=== PATIENT | male | born 1970 | race Two or more races ===

== ENCOUNTER → 2020-03-10 | Day surgery (SDC) | payer OTHER ==
[2020-03-10] VITALS (10 sets, daily range): BP systolic 115–138; BP diastolic 60–89
[~2020-03-10] VITALS: Ht 172.7 cm; Wt 66.2 kg
[~2020-03-10] MED LIST: Atropine Sulfate 0.4mg/ml inj IVP PRN; DiphenhydrAMINE 50mg/ml Inj IVP PRN; HYDROcodone/Acetamin 5/325 tab ORAL PRN; HYDROcodone/Acetamin 7.5/325 tab ORAL PRN; Hydromorphone 0.5mg/0.5ml inj IVP PRN; Ketorolac 30mg Inj IV PRN; LORazepam Inj 2mg/ml 1ml IV PRN; LR 1000ml 1,000 ML IVLG SCH; LR 1000ml ONE; Labetalol 5mg/ml 20ml vial IV PRN; Lidocaine 1% MPF 10mg/ml 5ml ONE; Meperidine 25mg/1ml Inj (FOR RIGORS ONLY) IV PRN; Metoclopramide 10mg/2ml Inj IVP PRN; Midazolam 2mg/2ml Inj IVP PRN; fentaNYL 100 mcg/2 mL IV PRN; oxyCODONE HCL/Acetaminophen 5/325mg ORAL PRN
--- NOTE | 2020-03-10 09:31 | Pre-Procedure Note/Attestation ---
Pre-Procedure Note/Attestation Complete Prior to Procedure Planned Procedure: not applicable Procedure Narrative: endoscopy and colonoscopy Attestation I attest that I discussed the nature of the procedure; its benefits; risks and complications; and alternatives (and the risks and benefits of such alternatives), prior to the procedure, with the patient (or the patient's legal guest relations representative). I attest that, if there was a reasonable possibility of needing a blood transfusion, the patient (or the patient's legal guest relations representative) was given the [facility] standardized written summary, pursuant to the Ciro Galt Blood Safety Act ([place] Health and Safety Code # 1645, as amended). I attest that I re-evaluated the patient just prior to the surgery and that there has been no change in the patient's H&P, except as documented below: Otis Barahona MD Mar 10, 2020 09:31
--- NOTE | 2020-03-10 09:44 | Anethesia Preoperative Eval ---
Anesthesia Pre-op PMH/ROS General Date of Evaluation: Mar 10, 2020 Time of Evaluation: 09:24 Anesthesiologist: Shi ASA Score: ASA 1 Mallampati Score Class I : Soft palate, uvula, fauces, pillars visible Class II: Soft palate, uvula, fauces visible Class III: Soft palate, base of uvula visible Class IV: Only hard plate visible Mallampati Classification: Class I Surgeon: [place] Diagnosis: Abd Pain Surgical Procedure: EGD/Colonoscopy Anesthesia History: none Family History: no anesthesia problems Allergies: Coded Allergies: No Known Allergies (Unverified , 03/10/20) Medications: see eMAR Patient NPO?: Yes Past Medical History Gastrointestinal/Genitourinary: Reports: GERD Anesthesia Pre-op Phys. Exam Physician Exam Last Vital Signs Date Time Temp Pulse Resp B/P (MAP) Pulse Ox O2 Delivery O2 Flow Rate FiO2 03/10/20 08:07 98.0 57 18 119/74 98 Room Air Constitutional: NAD Neurologic: CN 2-12 intact Cardiovascular: RRR Respiratory: CTA Gastrointestinal: S/NT/ND Airway Exam Mallampati Score: Class I MO: full ROM: full Teeth: intact Anesthesia Pre-op A/P Risk Assessment & Plan Assessment: ASA 1 Plan: TIVA Status Change Before Surgery: No Dat Osullivan MD Mar 10, 2020 09:44
--- NOTE | 2020-03-10 09:45 | Immediate Post-Op Evaluation ---
Immediate Post-Op Evalulation Immediate Post-Op Evalulation Procedure: EGD/Colonoscopy Date of Evaluation: Mar 10, 2020 Time of Evaluation: 10:25 IV Fluids: 700 LR Blood Products: 0 Estimated Blood Loss: 1 Urinary Output: 0 Blood Pressure Systolic: 126 Blood Pressure Diastolic: 89 Pulse Rate: 66 Respiratory Rate: 16 O2 Sat by Pulse Oximetry: 100 Temperature (Fahrenheit): 97.6 Pain Score (1-10): 1 Nausea: No Vomiting: No Complications 0 Patient Status: awake, reacts, patent, none Hydration Status: adequate Dat Osullivan MD Mar 10, 2020 09:45
--- NOTE | 2020-03-10 09:46 | 48 Hour Post Anesthesia Eval ---
Post Anesthesia Evaluation Procedure: EGD/Colonoscopy Date of Evaluation: Mar 10, 2020 Time of Evaluation: 12:46 Blood Pressure Systolic: 121 0: 76 Pulse Rate: 73 Respiratory Rate: 18 Temperature (Fahrenheit): 98 O2 Sat by Pulse Oximetry: 100 Airway: patent Nausea: No Vomiting: No Pain Intensity: 1 Hydration Status: adequate Cardiopulmonary Status: Stable Mental Status/LOC: patient returned to baseline Follow-up Care/Observations: 0 Post-Anesthesia Complications: 0 Follow-up care needed: ready to discharge Dat Osullivan MD Mar 10, 2020 09:46
--- NOTE | 2020-03-10 10:23 | Endoscopy Procedure Note ---
Endoscopy Procedure Note General Indication for Procedure: abd pain diarrhea Procedures Performed: EGD, colonoscopy Operative Findings/Diagnosis: nl nl Specimen: yes Pt Tolerated Procedure Well: Yes Estimated Blood Loss: none Anesthesia Anesthesiologist: Rodo Anesthesia: MAC, moderate sedation Medications Medication Given: see anesthesia record Inserted Devices Implant(s) used?: No GI Core Measures 50 yrs or older w/o bx or poly: Not Applicable 10yrs. F/U recommended: Not Applicable Otis Barahona MD Mar 10, 2020 10:23
--- NOTE | 2020-03-10 10:23 | Brief Operative Note ---
Immediate Post Operative Note Operative Note Chief Complaint: abd pain diarrhea Specimen: yes Complications: none Fluids: per anesthesia Implant(s) used?: No Otis Barahona MD Mar 10, 2020 10:23
--- NOTE | 2020-03-10 10:25 | Endoscopy Procedure Note ---
Endoscopy Procedure Note General Indication for Procedure: pain diarrrhea Procedures Performed: EGD, colonoscopy Operative Findings/Diagnosis: nl nl Anesthesia Anesthesiologist: Shi Anesthesia: MAC Inserted Devices Implant(s) used?: No GI Core Measures 50 yrs or older w/o bx or poly: Not Applicable 10yrs. F/U recommended: Not Applicable Otis Barahona MD Mar 10, 2020 10:25
--- NOTE | 2020-03-10 10:26 | Brief Operative Note ---
Immediate Post Operative Note Operative Note Chief Complaint: abd pain diarrhea Specimen: yes Complications: none Fluids: per anesthesia Implant(s) used?: No Otis Barahona MD Mar 10, 2020 10:26
--- NOTE | 2020-03-11 01:00 | Operative Note - Dictated ---
This procedure was re-dictated Otis WALTON
--- NOTE | 2020-03-15 14:00 | Operative Note - Dictated ---
DATE OF OPERATION: 03/10/2020 GASTROENTEROLOGY PROCEDURE REPORT PROCEDURE: Upper gastrointestinal endoscopy with biopsy as well as colonoscopy with biopsy. SURGEON: Otis Barahona MD. ANESTHESIA: Please see the separate anesthesiologist notes for details. PRE-ENDOSCOPIC DIAGNOSES: Altered bowel habits, frequent bowel movements, diarrhea, and weight loss. POST-ENDOSCOPIC DIAGNOSIS: Normal upper and lower gastrointestinal endoscopy, status post random biopsy of the upper and lower GI tract as described below. PROCEDURE IN DETAIL: The procedure, its risks, indications, alternatives, and possible complications including but not limited to bleeding, infection, perforation, , and anesthesia complications were explained to the patient and informed consent was obtained. The patient was then sedated in the left lateral decubitus position. A diagnostic upper endoscope was introduced into oropharynx and advanced to the duodenum without difficulty. The endoscope was then gradually withdrawn and mucosa examined carefully. Examination of the upper gastrointestinal mucosa did not reveal any abnormalities. Biopsies of the duodenum and antrum were sent to pathology for review. Thereafter, rectal exam was done and colonoscope was introduced in the rectum and advanced into the terminal ileum. The colonoscope was then gradually withdrawn and mucosa examined carefully. Examination of the terminal ileal mucosa as well as the colonic mucosa did not reveal any visual abnormalities. Biopsies of the terminal ileum, ascending colon, transverse colon, left colon, and rectosigmoid colon were sent to pathology for review. Retroflexed view of the rectum was unremarkable. The colonoscope was removed and the patient was sent to recovery in good condition. COMPLICATIONS: None. ASSESSMENT: There were no visual abnormalities in this examination to explain the patient's symptoms. Biopsies will be evaluated to rule out celiac disease, inflammatory bowel disease, microscopic colitis, and collagenous colitis. RECOMMENDATIONS: 1. Follow up biopsy results. 2. Outpatient followup. Otis Barahona M.D. DR: LEATHA JOB#: [id number] CC:
== END | disposition home or self-care (01) ==
LOC: GAS 07:28
DX: R19.7 Diarrhea, unspecified (principal); K29.50 Unspecified chronic gastritis without bleeding; R63.4 Abnormal weight loss; Z68.22 Body mass index [BMI] 22.0-22.9, adult; K21.9 Gastro-esophageal reflux disease without esophagitis
CPT/HCPCS: 43239; 45380; 94003; J2704; J7120; U0002; 94150